=== PATIENT | male | born 1995 | race Two or more races ===

== ENCOUNTER 2018-10-05 14:04 | Emergency (ER) | payer OTHER ==
[~2018-10-05] VITALS: Ht 185.4 cm; Wt 83.5 kg
== END 2018-10-05 18:12 | disposition home or self-care (01) ==
LOC: ER 14:04
DX: J11.1 Influenza due to unidentified influenza virus with other respiratory manifestations (principal)

== ENCOUNTER 2019-03-04 19:06 | Emergency (ER) | payer OTHER ==
[~2019-03-04] VITALS: Ht 185.4 cm; Wt 83.5 kg
[2019-03-04] MEDS ORDERED: CLEOCIN HCL300 MG PO (23:26)
[2019-03-04] MEDS ORDERED: IBUPROFEN800 MG PO (23:26)
[2019-03-04] MEDS ORDERED: PEPCID AC20 MG PO (23:26)
[2019-03-04] MEDS ORDERED: INTESTINEX680 M1 PO (23:26)
== END 2019-03-04 23:48 | disposition home or self-care (01) ==
LOC: ER 19:06
DX: J35.01 Chronic tonsillitis (principal)